=== PATIENT | male | born 1960 | race Caucasian/White ===

== ENCOUNTER 2017-02-08 00:32 | Emergency (ER) ==
[2017-02-08 00:40] VITALS: BP 139/80
[2017-02-08] MEDS ORDERED: PONTOCAINE 0.5% OPH SOLUTION BOTH EYES ONE (00:45)
--- NOTE | 2017-02-08 01:21 | PROVIDER DOCUMENTATION ---
[facility] General - General Source: patient - History of Present Illness-EE General [facility] Location: reports: eye (R), eye (L) Quality of Pain: reports: burning, other Severity: reports: moderate Onset/Duration: reports: this evening Timing: reports: still present, getting worse Prearrival Treatment: Initiated no prearrival treatment - Eyes Eye Problem Symptoms: reports: eye pain, burning, itching, redness <Eliecer Hollingsworth - Last Filed: 02/08/17 01:16> <Heraclio Pineda - Last Filed: 02/08/17 01:26> - General Chief Complaint: Eye Complaint Stated Complaint: FLASH BURN TO EYES Time Seen by Provider: 02/08/17 01:05 Allergies/Adverse Reactions: Patient Allergies Allergy/AdvReac Type Severity Reaction Status Date / Time No Known Allergies Allergy Verified 02/08/17 00:40 Home Medications: Home Medication List Medication Instructions Recorded Confirmed Last Taken Type Ketorolac [Toradol] 10 mg PO Q6H PRN PRN #20 tablet 02/08/17 Unknown Rx - History of Present Illness-[facility] General Nature of Presenting Problem: 56 y/o M who 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 Says he has had this same pain and knows it is a welders burn. (Eliecer Hollingsworth) Review of Systems - Adult - REVIEW OF SYSTEMS - ADULT Constitutional: denies: chills, fever Eyes: reports: eye pain, redness Ears, Nose, Mouth & Throat: reports: no symptoms reported Cardiovascular: reports: no symptoms reported Respiratory: reports: no symptoms reported Gastrointestinal: reports: no symptoms reported Genitourinary: reports: no symptoms reported Musculoskeletal: reports: no symptoms reported Integumentary: reports: no symptoms reported Neurological: reports: no symptoms reported Psychiatric: reports: no symptoms reported Endocrine: reports: no symptoms reported Hematologic/Lymphatic: reports: no symptoms reported Allergic/Immunologic: reports: no symptoms reported All Other Systems: Reviewed and Negative <Eliecer Hollingsworth - Last Filed: 02/08/17 01:16> Past History - Adult - PAST MEDICAL HISTORY-ADULT Review of Records: reports: Old Records Reviewed, Nursing Assessment Review, Medications Reviewed - SOCIAL HISTORY Smoking: non-smoker Substance Use: none/never Living Situation: family 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 <Eliecer Hollingsworth - Last Filed: 02/08/17 01:16> Physical Exam- EENT - Physical Exam EENT Initial Vital Signs Reviewed: Yes General Appearance: appears well, alert, no apparent distress Eye Exam: bilateral eye: PERRL, conjunctival inflammation, papilledema, other ( flash royal) Ear Exam: bilateral ear: auricle normal, canal normal, TM normal Nasal Exam: normal inspection, active bleeding Throat Exam: normal mouth inspection, pharynx normal Neck: non-tender, full range of motion, supple, normal inspection Respiratory: lungs clear, normal breath sounds, no pleuratic chest pain, no respiratory distress, no accessory muscle use Cardiovascular: normal peripheral pulses, regular rate, rhythm Abdominal Exam: normal bowel sounds, non tender, soft Back Exam: normal inspection, no CVA tenderness, no vertebral tenderness Extremity: normal range of motion, non-tender, normal gait, normal inspection Integumentary: normal color, normal turgor, warm/dry Neurologic: grossly normal, no motor/sensory deficits Psych/Mental Status: normal mood/affect, normal thought content, normal thought process, oriented x 3 <Eliecer Hollingsworth - Last Filed: 02/08/17 01:16> Progress <Eliecer Hollingsworth - Last Filed: 02/08/17 01:16> <Heraclio Pineda - Last Filed: 02/08/17 01:26> - PLAN OF CARE/RESULTS Progress/Plan/Lab Results: Orders Category Date Time Status Tetracaine 0.5% Oph Solution [Pontocaine 0.5% Oph Med 02/08/17 00:45 Discontinued Solution] 1 ml BOTH EYES NOW ONE Vital Signs Temp Pulse Resp BP Pulse Ox 02/08/17 00:37 98.5 F 75 18 139/80 100 No Known Allergies Allergy (Verified 02/08/17 00:40) No Home Medications 02/08/17 (Eliecer Hollingsworth) Departure - Departure Time of Disposition Order: 01:20 <Eliecer Hollingsworth - Last Filed: 02/08/17 01:16> - Departure Time of Disposition Order: 01:25 Certified Medical Emergency: Emergent <Heraclio Pineda - Last Filed: 02/08/17 01:26> - Departure DIAGNOSIS: Welders' keratitis of both eyes Disposition: HOME 01 Condition: Stable Additional Instructions: ED Follow Up Instructions: You have been treated by a care provider in the Emergency Department. These instructions are being provided to you so you can have an understanding of how to care for yourself upon discharge. Upon discharge from the Emergency Department, you are responsible for making arrangements for follow-up care by a physician of your choice. Take all prescribed medications as directed. Return to the Emergency Department immediately for any new or worsening symptoms. You may call the Physician Referral phone number at [phone] to obtain a list of Physicians who are taking new patients. Prescriptions: Ketorolac [Toradol] 10 mg PO Q6H PRN PRN #20 tablet PRN Reason: Pain Referrals: None,PCP [Primary Care Provider] - Attestation - Scribe Verification/Attestation Scribe:: Eliecer Hollingsworth Acting as Scribe for:: Heraclio Pineda Scribe documention review:: This chart was documented by a scribe and accurately reflects the service the provider performed and the decisions made by the provider. <Eliecer Hollingsworth - Last Filed: 02/08/17 01:16> Physician Attestation
[2017-02-08] MEDS ORDERED: TORADOL ONE (01:46)
[2017-02-08] MEDS ORDERED: TORADOL PO ONE (01:49)
== END 2017-02-08 01:51 | disposition home or self-care (01) ==
LOC: P.ED 00:32
DX: H16.133 Photokeratitis, bilateral (principal); H92.03 Otalgia, bilateral; W89.8XXA Exposure to other man-made visible and ultraviolet light, initial encounter